=== PATIENT | male | born 1980 | race Caucasian/White ===

== ENCOUNTER 2017-10-13 15:48 | Emergency (ER) | payer SELFPAY ==
[2017-10-13] MEDS: DIPHTH/TET/ACEL PERTUSS (ADULT) 0.5 ML VIAL IM* (16:38)
== END 2017-10-13 16:57 | disposition home or self-care (01) ==
LOC: FTE 15:48
DX: S91.332A Puncture wound without foreign body, left foot, initial encounter (principal); W45.0XXA Nail entering through skin, initial encounter; Y92.9 Unspecified place or not applicable; Z23 Encounter for immunization
CPT/HCPCS: 90471; 90715; 99283-25